=== PATIENT | male | born 1955 ===

== ENCOUNTER 2017-07-01 10:55 | Emergency (ER) | payer MEDICAID, OTHER ==
[2017-07-01 11:08] VITALS: BMI 29.0
[2017-07-01 11:54] VITALS: BP 122/72; PULSE 80; RESP 18; TEMP 98.5; O2SAT 99
--- NOTE | 2017-07-01 15:34 | C.PDOC ---
History Of Present Illness 62 year old male presents to the ED with complaints of a sore throat that has been going on for approximately 4 days. Patient is able to tolerate PO intake; he reports a subjective fever. Patient denies cough, chest pain, SOB, recent travel or known sick contacts. Chief Complaint (Nursing): ENT Problem History Per: Patient History/Exam Limitations: None Onset/Duration Of Symptoms: Days Current Symptoms Are (Timing): Still Present Quality (Mouth/Throat): Other (Sore throat) Symptoms Have Been: Continuous Past Medical History Reviewed: Historical Data, Nursing Documentation, Vital Signs Vital Signs: Last Vital Signs Temp 98.5 F 07/01/17 11:53 Pulse 80 07/01/17 11:53 Resp 18 07/01/17 11:53 BP 122/72 07/01/17 11:53 Pulse Ox 99 07/01/17 15:41 - Medical History PMH: Diabetes (not on meds) Surgical History: No Surg Hx Family History: States: Unknown Family Hx - Social History Hx Tobacco Use: No Hx Alcohol Use: No Hx Substance Use: No - Immunization History Hx Tetanus Toxoid Vaccination: No Hx Influenza Vaccination: No Hx Pneumococcal Vaccination: No Review Of Systems Constitutional: Negative for: Fever, Chills ENT: Positive for: Other (Sore throat) Cardiovascular: Negative for: Chest Pain Respiratory: Negative for: Cough, Shortness of Breath Physical Exam - Physical Exam Appears: Well, No Acute Distress Skin: Normal Color, Warm, Dry Head: Atraumatic, Normacephalic Ear(s): Bilateral: Normal Nose: Normal, No Discharge Oral Mucosa: Moist Throat: Erythema (Pharynx), Exudate (Present in the right side) Neck: Normal, Supple Chest: Symmetrical Cardiovascular: Rhythm Regular Respiratory: Normal Breath Sounds, No Rales, No Rhonchi, No Wheezing Neurological/Psych: Oriented x3, Normal Speech, Normal Cognition ED Course And Treatment O2 Sat by Pulse Oximetry: 99 (Room air) Pulse Ox Interpretation: Normal Progress Note: Patient was given instructions for proper care. Disposition - Disposition Referrals: Teressa Shaw, [Non-Staff] - Disposition: HOME/ ROUTINE Disposition Time: 11:35 Condition: GOOD Additional Instructions: Thank you for letting us take care of you today. Your provider was Dr. Caldwell. You were treated for a sore throat. The emergency medical care you received today was directed at your acute symptoms. If you were prescribed any medication, please fill it and take as directed. It may take several days for your symptoms to resolve. Return to the Emergency Department if your symptoms worsen, do not improve, or if you have any other problems. Please contact your doctor or call one of the physicians/clinics you have been referred to that are listed on the Patient Visit Information form that is included in your discharge packet. Bring any paperwork you were given at discharge with you along with any medications you are taking to your follow up visit. Our treatment cannot replace ongoing medical care by a primary care provider (PCP) outside of the emergency department. Thank you for allowing the [facility] team to be part of your care today. Follow up with your doctor in 2-3 days for re-evaluation and further management. Prescriptions: Azithromycin [Zithromax] 250 mg PO DAILY #6 tab Ibuprofen [Motrin] 600 mg PO Q6 PRN #20 tab PRN Reason: Pain, Moderate (4-7) Instructions: Pharyngitis (ED) Forms: [employer] (Turkmen) - Clinical Impression Clinical Impression: Pharyngitis - Scribe Statement The provider has reviewed the documentation as recorded by the Scribe Kings Blas All medical record entries made by the Scribe were at my direction and personally dictated by me. I have reviewed the chart and agree that the record accurately reflects my personal performance of the history, physical exam, medical decision making, and the department course for this patient. I have also personally directed, reviewed, and agree with the discharge instructions and disposition.
== END 2017-07-01 11:54 | disposition home or self-care (01) ==
LOC: C.ER 10:55
DX: J02.9 Acute pharyngitis, unspecified (principal)

== ENCOUNTER 2017-07-02 10:17 | Emergency (ER) | payer OTHER ==
[2017-07-02 10:17] VITALS: BMI 29.0
[2017-07-02 10:47] VITALS: RESP 18; TEMP 98.2
--- NOTE | 2017-07-02 11:10 | C.PDOC ---
History Of Present Illness 62yo male, presents to the ED for evaluation of throat pain, described as pain in his glands, worsening since last night. Patient reports he was seen in this facility yesterday and was given Zithromax and Motrin. Patient states he took the Zithromax without relief. he denies any fever, chills, neck pain. He offers no other medical complaints. Time Seen by Provider: 07/02/17 10:53 Chief Complaint (Nursing): ENT Problem History Per: Patient History/Exam Limitations: no limitations Onset/Duration Of Symptoms: Days Current Symptoms Are (Timing): Still Present Reports Recently: Seen In ED Recent travel outside of the [place]: No Past Medical History Reviewed: Historical Data, Nursing Documentation, Vital Signs Vital Signs: Last Vital Signs Temp 98.2 F 07/02/17 10:42 Pulse 70 07/02/17 11:21 Resp 18 07/02/17 11:21 BP 138/74 07/02/17 11:21 Pulse Ox 99 07/02/17 11:21 - Medical History PMH: Diabetes (not on meds) Surgical History: No Surg Hx Family History: States: No Known Family Hx, Unknown Family Hx - Social History Hx Tobacco Use: No Hx Alcohol Use: No Hx Substance Use: No - Immunization History Hx Tetanus Toxoid Vaccination: No Hx Influenza Vaccination: No Hx Pneumococcal Vaccination: No Review Of Systems Constitutional: Negative for: Fever, Chills ENT: Positive for: Throat Pain Musculoskeletal: Negative for: Neck Pain Physical Exam - Physical Exam Appears: Non-toxic, No Acute Distress Skin: Warm Oral Mucosa: Moist Throat: Normal, No Erythema, No Exudate Neck: Normal ROM, Supple Neurological/Psych: Oriented x3, Normal Speech, Normal Cognition ED Course And Treatment O2 Sat by Pulse Oximetry: 95 (RA) Pulse Ox Interpretation: Normal Medical Decision Making Medical Decision Making: Impression: 62yo male w/ throat pain Plan: -- Tylenol 975 mg PO -- Motrin 600 mg PO Patient informed to gargle with warm salt water. Informed to follow up with PCP in 1-2 days. Disposition Counseled Patient/Family Regarding: Diagnosis, Need For Followup - Disposition Disposition: HOME/ ROUTINE Disposition Time: 11:08 Condition: STABLE Instructions: Pharyngitis (ED) Forms: [employer] ([place] Citizen), Gen Discharge Inst [place] Citizen - Clinical Impression Clinical Impression: Pharyngitis - Scribe Statement The provider has reviewed the documentation as recorded by the Scribe Hilary Richey All medical record entries made by the Karlos were at my direction and personally dictated by me. I have reviewed the chart and agree that the record accurately reflects my personal performance of the history, physical exam, medical decision making, and the department course for this patient. I have also personally directed, reviewed, and agree with the discharge instructions and disposition.
[2017-07-02 11:22] VITALS: BP 138/74; PULSE 70
[2017-07-02 11:31] VITALS: O2SAT 95
== END 2017-07-02 11:22 | disposition home or self-care (01) ==
LOC: C.ER 10:17
DX: J02.9 Acute pharyngitis, unspecified (principal)

== ENCOUNTER 2017-10-27 14:08 | Emergency (ER) | payer OTHER ==
[2017-10-27 14:19] VITALS: BMI 29.9
[2017-10-27 14:22] VITALS: BP 130/76; PULSE 77; RESP 18; TEMP 98.7; O2SAT 98
--- NOTE | 2017-10-27 15:29 | C.PDOC ---
History Of Present Illness 62 year old male presents to the emergency department complaining of throat pain , body aches, cold, and cough. Denies any fever, vomiting, shortness of breath, or diarrhea. Patient denies any recent travel or sick contacts. Time Seen by Provider: 10/27/17 14:36 Chief Complaint (Nursing): ENT Problem History Per: Patient History/Exam Limitations: no limitations Onset/Duration Of Symptoms: Days (x4) Current Symptoms Are (Timing): Still Present Past Medical History Reviewed: Historical Data, Nursing Documentation, Vital Signs Vital Signs: Last Vital Signs Temp 98.7 F 10/27/17 14:19 Pulse 77 10/27/17 14:19 Resp 18 10/27/17 14:19 BP 130/76 10/27/17 14:19 Pulse Ox 98 10/27/17 17:56 - Medical History PMH: Diabetes (not on meds) Other Surgeries: Leg Surgery - Veins Family History: States: Unknown Family Hx - Social History Hx Tobacco Use: No Hx Alcohol Use: No Hx Substance Use: No - Immunization History Hx Tetanus Toxoid Vaccination: No Hx Influenza Vaccination: No Hx Pneumococcal Vaccination: No Review Of Systems Except As Marked, All Systems Reviewed And Found Negative. Constitutional: Positive for: Other (Body aches, cold). Negative for: Fever ENT: Positive for: Throat Pain Cardiovascular: Negative for: Chest Pain Respiratory: Positive for: Cough. Negative for: Shortness of Breath, Sputum Gastrointestinal: Negative for: Nausea, Vomiting, Diarrhea Physical Exam - Physical Exam Appears: Non-toxic, No Acute Distress Skin: Normal Color, Warm, Dry Head: Atraumatic, Normacephalic Eye(s): bilateral: Normal Inspection, PERRL, EOMI Ear(s): Bilateral: Normal Nose: Normal Throat: Normal Neck: Normal Cardiovascular: Rhythm Regular, No Murmur Respiratory: Normal Breath Sounds, No Accessory Muscle Use, No Wheezing Gastrointestinal/Abdominal: Normal Exam, No Tenderness, No Distention Back: Normal Inspection Extremity: Normal ROM Neurological/Psych: Oriented x3 ED Course And Treatment O2 Sat by Pulse Oximetry: 98 (RA) Pulse Ox Interpretation: Normal Reassessment Condition: Improved Medical Decision Making Medical Decision Making: Discharge Time: 15:39 Upon reevaluation, patient is feeling better and was discharged home. Patient was advised to follow up with a primary care physician. Disposition Counseled Patient/Family Regarding: Studies Performed, Diagnosis, Need For Followup, Rx Given - Disposition Referrals: Clarissa Paniagua MD [Medical Doctor] - Disposition: HOME/ ROUTINE Disposition Time: 15:27 Condition: STABLE Additional Instructions: TAKE TYLENOL AND/OR MOTRIN OTC NEEDED FOR PAIN. FOLLOW UP WITH PMD IN 1-2 DAYS FOR RE-EVALUATION. IF SYMPTOMS GET WORSE OR ANY NEW CONCERNING SYMPTOMS DEVELOP RETURN TO ED. Instructions: Upper Respiratory Infection (ED) Forms: [employer] (French) Print Language: BENINESE - Clinical Impression Clinical Impression: Upper respiratory infection - Scribe Statement The provider has reviewed the documentation as recorded by the Scribe Sally Ronquillo All medical record entries made by the Scribe were at my direction and personally dictated by me. I have reviewed the chart and agree that the record accurately reflects my personal performance of the history, physical exam, medical decision making, and the department course for this patient. I have also personally directed, reviewed, and agree with the discharge instructions and disposition.
== END 2017-10-27 15:40 | disposition home or self-care (01) ==
LOC: C.ER 14:08
DX: J06.9 Acute upper respiratory infection, unspecified (principal)

== ENCOUNTER 2018-01-08 09:58 | Emergency (ER) | payer OTHER ==
[2018-01-08 09:58] VITALS: BMI 29.9
[2018-01-08 10:12] VITALS: BP 135/81; PULSE 71; RESP 18; TEMP 97.5; O2SAT 98
--- NOTE | 2018-01-08 10:21 | C.PDOC ---
History Of Present Illness 62 year old male presents to the ER with a complaint of throat pain for the past 3 days, associated with a cough with green phlegm. Patient states he took tylenol at home with no relief. Denies fever or ear pain. Time Seen by Provider: 01/08/18 10:14 Chief Complaint (Nursing): ENT Problem History Per: Patient History/Exam Limitations: no limitations Onset/Duration Of Symptoms: Days Current Symptoms Are (Timing): Still Present Recent travel outside of the [place]: No Past Medical History Reviewed: Historical Data, Nursing Documentation, Vital Signs Vital Signs: Last Vital Signs Temp 97.5 F L 01/08/18 10:08 Pulse 71 01/08/18 10:08 Resp 18 01/08/18 10:08 BP 135/81 01/08/18 10:08 Pulse Ox 98 01/08/18 10:21 - Medical History PMH: Diabetes (not on meds) Family History: States: Unknown Family Hx - Social History Hx Tobacco Use: No Hx Alcohol Use: No Hx Substance Use: No - Immunization History Hx Tetanus Toxoid Vaccination: No Hx Influenza Vaccination: No Hx Pneumococcal Vaccination: No Review Of Systems Except As Marked, All Systems Reviewed And Found Negative. Constitutional: Negative for: Fever ENT: Positive for: Throat Pain. Negative for: Ear Pain Respiratory: Positive for: Cough, Sputum Physical Exam - Physical Exam Additional Physical Exam Comments: Constitutional: No acute distress. Head: Normocephalic. Atraumatic. Eyes: PERRL. ENT: Pharyngeal erythema, no exudates. Neck: Tender lymph adenopathy. Cardiovascular: Regular rate. Radial pulse 2+ bilaterally. Chest: No tenderness. Respiratory: Clear to auscultation bilaterally. GI: Soft. Nontender. Nondistended. Back: No CVA tenderness. Musculoskeletal: No tenderness or swelling of extremities. Skin: No rash. Neurologic: Alert, no focal deficit. ED Course And Treatment O2 Sat by Pulse Oximetry: 98 (Room air) Pulse Ox Interpretation: Normal Disposition - Disposition Referrals: Rigoberto Crews MD [Non-Staff] - Disposition: HOME/ ROUTINE Disposition Time: 10:18 Condition: STABLE Prescriptions: Amoxicillin/Clavulanate [Augmentin 875 MG-125 MG] 1 tab PO BID #20 tab D-Methorphan/PE/Acetaminophen [Vicks Dayquil Liquicaps] 2 cap PO Q4H #48 capsule Instructions: Sore Throat, Adult (DC) Forms: [employer] (Yi) - Clinical Impression Clinical Impression: Sore throat - Scribe Statement The provider has reviewed the documentation as recorded by the Scribe Amos Reis All medical record entries made by the Scribe were at my direction and personally dictated by me. I have reviewed the chart and agree that the record accurately reflects my personal performance of the history, physical exam, medical decision making, and the department course for this patient. I have also personally directed, reviewed, and agree with the discharge instructions and disposition.
== END 2018-01-08 10:38 | disposition home or self-care (01) ==
LOC: C.ER 09:58
DX: J02.9 Acute pharyngitis, unspecified (principal)

== ENCOUNTER 2018-01-18 12:56 | Emergency (ER) | payer OTHER ==
[2018-01-18 12:56] VITALS: BMI 29.9
[2018-01-18 13:05] VITALS: BP 122/72; PULSE 84; RESP 18; TEMP 98; O2SAT 95
[2018-01-18] MEDS ORDERED: Bacitracin Ointment 30 GM TUBE TOP STA (13:20)
[2018-01-18] MEDS ORDERED: Bacitracin 500 Units/gm Oint Foilpak UD ONE (13:22)
[2018-01-18] MEDS ORDERED: Tdap Vaccine 0.5 ml Vial (10-64 yrs) IM ONE ×2 (13:29→13:33)
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
== END 2018-01-18 13:34 | disposition home or self-care (01) ==
LOC: C.ER 12:56
DX: S61.551A Open bite of right wrist, initial encounter (principal); W50.3XXA Accidental bite by another person, initial encounter; Y92.89 Other specified places as the place of occurrence of the external cause

== ENCOUNTER 2018-08-08 10:20 | Emergency (ER) | payer OTHER ==
[2018-08-08 10:20] VITALS: BMI 29.9
[2018-08-08] MEDS ORDERED: Sodium Chloride 0.9% 1,000 ML IV ONE (11:00)
[2018-08-08 11:23] LABS: BASO # 0.1 K/uL (0.0-0.2); BASO % 0.8 % (0.0-2.0); EOS # 0.3 K/uL (0.0-0.7); EOS % 4.3 % (0.0-4.0); HEMOGLOBIN 13.8 g/dL (12.0-18.0); LYMPH # 1.8 K/uL (1.0-4.3); LYMPH % 24.2 % (20.0-40.0); MEAN CELL VOLUME 91.7 fL (80.0-94.0); MEAN CORPUSCULAR HEMOGLOBIN 31.5 pg (27.0-31.0); MEAN CORPUSCULAR HGB CONC 34.4 g/dL (33.0-37.0); MEAN PLATELET VOLUME 8.5 fL (7.2-11.7); MONO # 0.6 K/uL (0.0-0.8); MONO % 8.7 % (0.0-10.0); NEUT # 4.5 K/uL (1.8-7.0); NRBC % 0.1 % (0.0-2.0); RBC 4.38 Mil/uL (4.40-5.90); RED CELL DISTRIBUTION WIDTH 13.5 % (11.5-14.5); WHITE BLOOD COUNT 7.3 K/uL (4.8-10.8)
[2018-08-08 11:28] LABS: URINE BILIRUBIN NEGATIVE (NEGATIVE); URINE BLOOD NEGATIVE (NEGATIVE); URINE CLARITY Hazy (Clear); URINE COLOR Amber (YELLOW); URINE GLUCOSE (UA) NORMAL (Normal); URINE LEUKOCYTE ESTERASE NEG Leu/uL (Negative); URINE PROTEIN NEGATIVE (NEGATIVE)
[2018-08-08 11:39] LABS: ALB/GLOB RATIO 1.5 (1.0-2.1); ALBUMIN 4.1 g/dL (3.5-5.0); ALT/SGPT 39 U/L (21-72); AST/SGOT 25 U/L (17-59); BLOOD UREA NITROGEN 17 mg/dL (9-20); CALCIUM 8.1 mg/dl (8.6-10.4); GFR NON-AFRICAN AMERICAN > 60; LIPASE 57 U/L (23-300)
[2018-08-08] MEDS ORDERED: Iodixanol 320 MG/ML 100 ML BOTTLE IV ONE (12:07)
--- NOTE | 2018-08-08 12:08 | C.PDOC ---
History Of Present Illness 63 yo male w/o significant PMHx come in for evaluation of epigastric pain associated nausea, 2 episodes of non-bilious, non-bloody vomiting 3 days ago. Pt reports, " still my stomach feel achy". Otherwise, pt denies fever, chills, CP, SOB, palpitation, cough, hematemesis, melena, back pain, UTI sx, denies change in appetite. Ambulate to Ed for evaluation, not in any apparent distress. Time Seen by Provider: 08/08/18 10:49 Chief Complaint (Nursing): Abdominal Pain History Per: Patient Past Medical History Reviewed: Historical Data, Nursing Documentation, Vital Signs Vital Signs: Last Vital Signs Temp 98.5 F 08/08/18 10:26 Pulse 76 08/08/18 10:26 Resp 20 08/08/18 10:26 BP 138/86 08/08/18 10:26 Pulse Ox 97 08/08/18 10:26 - Medical History PMH: Diabetes (not on meds) Surgical History: No Surg Hx Family History: States: Unknown Family Hx - Social History Hx Tobacco Use: No Hx Alcohol Use: Yes Hx Substance Use: No - Immunization History Hx Tetanus Toxoid Vaccination: No Hx Influenza Vaccination: No Hx Pneumococcal Vaccination: No Review Of Systems Except As Marked, All Systems Reviewed And Found Negative. Constitutional: Negative for: Fever, Chills ENT: Negative for: Throat Pain, Throat Swelling Cardiovascular: Negative for: Chest Pain, Palpitations, Edema, Light Headedness Respiratory: Negative for: Cough, Shortness of Breath Gastrointestinal: Positive for: Nausea, Vomiting, Abdominal Pain. Negative for: Diarrhea, Melena, Hematochezia, Hematemesis Genitourinary: Negative for: Dysuria Musculoskeletal: Negative for: Neck Pain, Back Pain Neurological: Negative for: Altered Mental Status Physical Exam - Physical Exam Appears: Well, Non-toxic, No Acute Distress Skin: Normal Color, Warm, Dry Head: Normacephalic Eye(s): bilateral: PERRL Nose: No Discharge Oral Mucosa: Moist Throat: No Erythema Neck: Trachea Midline, Supple Cardiovascular: Rhythm Regular, No Murmur, No JVD Respiratory: No Decreased Breath Sounds, No Accessory Muscle Use, No Stridor, No Wheezing Gastrointestinal/Abdominal: Soft, Tenderness (mild epigastric and RLQ), No Distention, No Guarding, No Rebound Back: No CVA Tenderness Extremity: Normal ROM, No Pedal Edema, No Deformity Neurological/Psych: Oriented x3, Normal Speech ED Course And Treatment - Laboratory Results Result Diagrams: 08/08/18 11:15 08/08/18 11:15 Lab Interpretation: No Acute Changes ECG: Interpreted By Me, Viewed By Me ECG Rhythm: Sinus Bradycardia Interpretation Of ECG: Sinus salazar@57/min, NAD, no acute T wave or ST-T changes O2 Sat by Pulse Oximetry: 97 Pulse Ox Interpretation: Normal - CT Scan/US CT A/P Other Rad Studies (CT/US): Radiology Report Reviewed CT/US Interpretation: ccession No. : [id number]. Patient Name / ID : VICKY GALLEGOS / [id number]. Exam Date : 08/08/2018 12:29:00 ( Approved ). Study Comment : Sex / Age : M / 63Y. Creator : Brenna Brink. Dictator : Chaitanya Ward MD. Metal Furniture Repairer : Net Washer : Chaitanya Ward MD. Approver2 : Report Date : 08/08/2018 12:47:23. My Comment : . Date of service: 08/08/2018. PROCEDURE: CT Abdomen and Pelvis with and without intravenous contrast. HISTORY: abd pain. COMPARISON: None. TECHNIQUE: Axial images of the abdomen were obtained in the pre contrast, portal venous and delayed phases of enhancement. Coronal and sagittal reformats were generated. Contrast dose: Radiation dose: Total exam DLP = 637.6 mGy-cm. This CT exam was performed using one or more of the following dose reduction techniques: Automated exposure control, adjustment of the mA and/or kV according to patient size, and/or use of iterative reconstruction technique. FINDINGS: LOWER THORAX: Unremarkable. LIVER: Unremarkable. No gross lesion or ductal dilatation. GALLBLADDER AND BILE DUCTS: Unremarkable. PANCREAS: Unremarkable. No gross lesion or ductal dilatation. SPLEEN: Unremarkable. ADRENALS: Unremarkable. No mass. KIDNEYS AND URETERS: Unremarkable. No hydronephrosis. No solid mass. VASCULATURE: Unremarkable. No aortic aneurysm. No aortic atherosclerotic calcification or mural plaque present. BOWEL: Unremarkable. No obstruction. No gross mural thickening. APPENDIX: Normal appendix. PERITONEUM: Unremarkable. No free fluid. No free air. LYMPH NODES: Unremarkable. No enlarged lymph nodes. BLADDER: Unremarkable. REPRODUCTIVE: Prostate enlargement. Small right inguinal hernia. BONES: No acute fracture. OTHER FINDINGS: None. IMPRESSION: Prostate enlargement. Small right inguinal hernia. . Progress Note: On re-eval, pt is afebrile, hemodynamicaly stable. Non-toxic. Tolerate Po well in ED. Neck: SUpple, (-) JVD, (-) carotid bruits B/L. Lungs: CTA B/L, BS equal B/L. CVS: (+)S1S2, reg. Abd: soft, NT/ND, (-) localized tenderness. back: (-) CVA Tenderness. Blood work review and appears normal. CT A/P; no acute findings. Pt has clinical findings c/w epigastric pain, N/V, resolved. pt advised,. ref. to F/U with PMD in 2-3 days for re-evaluation. return to ED if any worsening or new chnages. Disposition Counseled Patient/Family Regarding: Studies Performed, Diagnosis, Need For Followup, Rx Given - Disposition Referrals: [facility] [Outside] Yuniel Umaña MD [Staff Provider] - Disposition: HOME/ ROUTINE Disposition Time: 12:55 Condition: STABLE Additional Instructions: Encourage fluids Diet modification, BRAT diet- banana, rice, apple sauce, toast Take medication as prescribed Follow up with PMD in 2-3 days for re-evaluation. Return to ED if any worsening or new changes. Prescriptions: Pantoprazole Sodium [Protonix] 40 mg PO DAILY #20 ect Instructions: Nausea and Vomiting, Adult Forms: [employer] (Ugandan) Print Language: CZECH - Clinical Impression Clinical Impression: Epigastric pain, Nausea, Vomiting
--- NOTE | 2018-08-08 13:08 | CT ---
Date of service: 08/08/2018 PROCEDURE: CT Abdomen and Pelvis with and without intravenous contrast HISTORY: abd pain COMPARISON: None. TECHNIQUE: Axial images of the abdomen were obtained in the pre contrast, portal venous and delayed phases of enhancement. Coronal and sagittal reformats were generated. Contrast dose: Radiation dose: Total exam DLP = 637.6 mGy-cm. This CT exam was performed using one or more of the following dose reduction techniques: Automated exposure control, adjustment of the mA and/or kV according to patient size, and/or use of iterative reconstruction technique. FINDINGS: LOWER THORAX: Unremarkable. LIVER: Unremarkable. No gross lesion or ductal dilatation. GALLBLADDER AND BILE DUCTS: Unremarkable. PANCREAS: Unremarkable. No gross lesion or ductal dilatation. SPLEEN: Unremarkable. ADRENALS: Unremarkable. No mass. KIDNEYS AND URETERS: Unremarkable. No hydronephrosis. No solid mass. VASCULATURE: Unremarkable. No aortic aneurysm. No aortic atherosclerotic calcification or mural plaque present. BOWEL: Unremarkable. No obstruction. No gross mural thickening. APPENDIX: Normal appendix. PERITONEUM: Unremarkable. No free fluid. No free air. LYMPH NODES: Unremarkable. No enlarged lymph nodes. BLADDER: Unremarkable. REPRODUCTIVE: Prostate enlargement. Small right inguinal hernia. BONES: No acute fracture. OTHER FINDINGS: None. IMPRESSION: Prostate enlargement. Small right inguinal hernia.
[2018-08-08 13:46] VITALS: BP 136/79; PULSE 60; RESP 19; TEMP 98
[2018-08-08 14:34] VITALS: O2SAT 97
--- NOTE | 2018-08-12 22:21 | CARD ---
APPROVED REPORT Date of service: 08/08/2018 EKG Measurement Heart [id number] <Conclusion> Sinus bradycardia with sinus arrhythmia Otherwise normal ECG
== END 2018-08-08 13:46 | disposition home or self-care (01) ==
LOC: C.ER 10:20
DX: R10.13 Epigastric pain (principal); R11.2 Nausea with vomiting, unspecified; E11.9 Type 2 diabetes mellitus without complications
CPT/HCPCS: 74177; 80053; 81001; 83690; 85025; 87040; 93005; 96374; 96375; 99284; C9113; J2405; J7030; Q9967

== ENCOUNTER 2018-10-05 14:04 | Emergency (ER) | payer OTHER ==
[2018-10-05 14:04] VITALS: BMI 29.9
[2018-10-05 14:22] VITALS: BP 126/72; PULSE 78; RESP 18; TEMP 97.8; O2SAT 96
--- NOTE | 2018-10-05 15:20 | C.PDOC ---
History Of Present Illness 63 year old male with no medical problems presents to the emergency department with complaints of 1 month of itchy rash to his left arm. Patient states that he was exposed to bed bugs at work, but lives alone by himself. Patient denies new soaps, lotions, medicines, and food. Patient states that the rash was initially on his forearm, but now it is on his upper arm and back. Patient states that the itchiness increases at night. Patient states that the rash is nowhere els janki his body. He denies difficulty swallowing, throat swelling, fever, chills, nausea, and vomiting. Time Seen by Provider: 10/05/18 15:00 Chief Complaint (Nursing): Abnormal Skin Integrity History Per: Patient History/Exam Limitations: no limitations Onset/Duration Of Symptoms: Other (one month) Current Symptoms Are (Timing): Still Present Location Of Injury: Left: Arm, Back, Shoulder Past Medical History Reviewed: Historical Data, Nursing Documentation, Vital Signs Vital Signs: Last Vital Signs Temp 97.8 F 10/05/18 14:18 Pulse 78 10/05/18 14:18 Resp 18 10/05/18 14:18 BP 126/72 10/05/18 14:18 Pulse Ox 96 10/05/18 14:18 - Medical History PMH: Diabetes (not on meds) Surgical History: No Surg Hx Family History: States: No Known Family Hx - Social History Hx Tobacco Use: No Hx Alcohol Use: Yes Hx Substance Use: No - Immunization History Hx Tetanus Toxoid Vaccination: No Hx Influenza Vaccination: No Hx Pneumococcal Vaccination: No Review Of Systems Except As Marked, All Systems Reviewed And Found Negative. Constitutional: Negative for: Fever, Chills Gastrointestinal: Negative for: Nausea, Vomiting Skin: Positive for: Rash Physical Exam - Physical Exam Appears: Non-toxic, No Acute Distress Skin: Warm, Dry, Rash (isolated, discrete, scabbed over lesions to the left upper and lower extremity and left upper back. No erythema, no pustules, no vesicular lesions, no excoriation. ) Head: Atraumatic, Normacephalic Eye(s): bilateral: Normal Inspection, PERRL, EOMI Nose: Normal Oral Mucosa: Moist Neck: Normal, Supple Neurological/Psych: Oriented x3, Normal Speech, Normal Cognition ED Course And Treatment O2 Sat by Pulse Oximetry: 96 (RA) Pulse Ox Interpretation: Normal Disposition Counseled Patient/Family Regarding: Diagnosis, Need For Followup - Disposition Disposition: HOME/ ROUTINE Disposition Time: 15:16 Condition: STABLE Additional Instructions: EL PERRY, thank you for letting us take care of you today. Your provider was Lary Dalton MD and you were treated for RASH. The emergency medical care you received today was directed at your acute symptoms. If you were prescribed any medication, please fill it and take as directed. It may take several days for your symptoms to resolve. Return to the Emergency Department if your symptoms worsen, do not improve, or if you have any other problems. Please contact your doctor in 1-2 days for a follow up visit. Bring any paperwork you were given at discharge with you along with any medications you are taking to your follow up visit. Our treatment cannot replace ongoing medical care by a primary care provider outside of the emergency department. Thank you for allowing the [facility] team to be part of your care today. If you had an X-Ray or CT scan: A Radiologist will review the ED reading if any change in treatment is needed we will contact you. If you had a blood, urine, or wound culture: It will take several days for the results, if any change in treatment is needed we will contact you. If you had an STI test: It will take 48 hours for the results. Please call after 1 week if you have not heard back. Prescriptions: Permethrin 5% [Permethrin 5% Cream] 60 gm EXT ONCE #1 tube Instructions: Scabies (DC) Forms: Gen Discharge Inst Romanian, [facility] (Romanian) Print Language: ROMANIAN - POA Present On Arrival: None - Clinical Impression Clinical Impression: Skin irritation, Scabies - Scribe Statement The provider has reviewed the documentation as recorded by the Scribe (Sam Lyndon) Provider Attestation: All medical record entries made by the Scribe were at my direction and personally dictated by me. I have reviewed the chart and agree that the record accurately reflects my personal performance of the history, physical exam, medical decision making, and the department course for this patient. I have also personally directed, reviewed, and agree with the discharge instructions and disposition.
== END 2018-10-05 15:43 | disposition home or self-care (01) ==
LOC: C.ER 14:04
DX: B86 Scabies (principal)

== ENCOUNTER 2018-11-02 15:14 | Emergency (ER) | payer OTHER ==
[2018-11-02 15:16] VITALS: BMI 29.9
[2018-11-02 15:31] VITALS: PULSE 68; TEMP 97.9; O2SAT 95
--- NOTE | 2018-11-02 15:32 | C.PDOC ---
History Of Present Illness 63 y/o male comes in to ED complaining of a pruritic rash in his right arm. Patient states he was seen here a couple months ago for similar symptoms and was treated. He reports feeling better and rash was resolved after treatment. He presents to ED now for the same rash. He denies any fever, chills, or other symptoms. Chief Complaint (Nursing): Abnormal Skin Integrity History Per: Patient History/Exam Limitations: no limitations Onset/Duration Of Symptoms: Days Current Symptoms Are (Timing): Still Present Past Medical History Reviewed: Historical Data, Nursing Documentation, Vital Signs Vital Signs: Last Vital Signs Temp 97.9 F 11/02/18 15:29 Pulse 68 11/02/18 15:29 Resp 17 11/02/18 15:29 BP Pulse Ox 95 11/02/18 15:29 - Medical History PMH: Diabetes (not on meds) Family History: States: No Known Family Hx - Social History Hx Tobacco Use: No Hx Alcohol Use: Yes Hx Substance Use: No - Immunization History Hx Tetanus Toxoid Vaccination: No Hx Influenza Vaccination: No Hx Pneumococcal Vaccination: No Review Of Systems Except As Marked, All Systems Reviewed And Found Negative. Constitutional: Negative for: Fever, Chills Cardiovascular: Negative for: Chest Pain Respiratory: Negative for: Shortness of Breath Gastrointestinal: Negative for: Nausea, Vomiting Skin: Positive for: Rash (on R arm) Physical Exam - Physical Exam Appears: Non-toxic, No Acute Distress Skin: Rash (diffuse maculopapular lesions), Other (excoriations and scratch ojeda on right arm) Head: Atraumatic, Normacephalic Eye(s): bilateral: Normal Inspection Oral Mucosa: Moist Throat: Normal, No Erythema, No Exudate Respiratory: Normal Breath Sounds, No Rales, No Rhonchi, No Wheezing Extremity: Bilateral: Normal ROM Neurological/Psych: Oriented x3, Normal Speech ED Course And Treatment O2 Sat by Pulse Oximetry: 95 (RA) Pulse Ox Interpretation: Normal Progress Note: Earl was treated previously for scabies. Will treat again for similar and given referral to a [facility]. Disposition - Disposition Referrals: Pita Joaquin MD [Non-Staff] - Yuko Castillo MD [Medical Doctor] - Jose Bardales MD [Medical Doctor] - Khasak,Herman, MD [Medical Doctor] - Disposition: HOME/ ROUTINE Disposition Time: 15:33 Condition: STABLE Additional Instructions: Follow up with Drying Machine Operator within 2-3 days. Return to ED if feel worse. Prescriptions: Permethrin 5% [Permethrin 5% Cream] 1 applic TOP ONCE #1 tube Instructions: Skin Rash Forms: [employer] (Italian) - Clinical Impression Clinical Impression: Rash - PA / CUSTOM DESIGNER / Resident Statement MD/DO has reviewed & agrees with the documentation as recorded. - Scribe Statement The provider has reviewed the documentation as recorded by the Scriblavern Cross All medical record entries made by the Briseidaiblavern were at my direction and personally dictated by me. I have reviewed the chart and agree that the record accurately reflects my personal performance of the history, physical exam, medical decision making, and the department course for this patient. I have also personally directed, reviewed, and agree with the discharge instructions and disposition.
[2018-11-02 15:50] VITALS: RESP 16
== END 2018-11-02 15:47 | disposition home or self-care (01) ==
LOC: C.ER 15:14
DX: R21 Rash and other nonspecific skin eruption (principal); E11.9 Type 2 diabetes mellitus without complications